=== PATIENT | male | born 1975 | race Two or more races ===

== ENCOUNTER 2021-04-22 10:30 | Emergency (ER) | payer BC ==
[2021-04-22] MEDS ORDERED: Ketorolac 60 MG/2 ML SDV IM ONE (10:59)
[2021-04-22] MEDS ORDERED: Diazepam 2 MG Tab PO ONE (11:00)
--- NOTE | 2021-04-22 11:09 | EDM.PDOC ---
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 The patient states this is much like the pain he had an 12/10/2019 when he received Flexeril. The patient stated he took Flexeril yesterday at 10 AM and again at 11 PM and while enabled him to get sleep he states that his pain is still great now. The patient has not used heat nor ice or any other method except for Flexeril for pain relief. The patient denies any numbness or tingling in his extremities. The patient denies any kind of headache or fever. The patient states that he is able to ambulate and get up and down but requires assistance because of the pain. Patient denies any chills, change in vision, syncope or near syncope. Denies any chest pain, back pain, shortness of breath or cough. Denies any abdominal pain, nausea, vomiting, diarrhea, constipation or dysuria. Has not noted any blood in urine or stool. Patient has been eating and drinking appropriately. Review of systems: As per history of present illness and below otherwise all systems reviewed and negative. Past medical history: As per history of present illness and as reviewed below otherwise noncontributory. Surgical history: As per history of present illness and as reviewed below otherwise noncontributory. Social history: See social history for further information Family history: As per history of present illness and as reviewed below otherwise noncontributory. Physical exam: General: Well developed and well nourished. Alert and orientated x 3. Nontoxic in appearance and in no acute distress. Vital signs are stable and have been reviewed by me. Nursing notes were reviewed. HEENT: Atraumatic, normocephalic, pupils equal and reactive bilaterally, negative for conjunctival pallor or scleral icterus, mucous membranes moist, TMs normal bilaterally, throat clear, neck supple, nontender, trachea midline. No drooling or trismus noted. No meningeal signs. No hot potato voice noted. Lungs: Clear to auscultation bilaterally. No wheezes, rales, or rhonchi. Chest nontender. Normal work of breathing, no accessory muscles used. Heart: S1S2, regular rate and rhythm without overt murmur, gallops, or rubs. No JVD. No peripheral edema Abdomen: Soft, nondistended, nontender. Normoactive bowel sounds. Negative for masses or costovertebral tenderness. Skin: Intact, warm, dry. No lesions or rashes noted. Hematologic: No petechiae or purpra. Mucosa appropriate color and normal nail bed color and refill. Back: Neck and back have no deformities, external skin changes, or signs of trauma. Curvature of the cervical, thoracic, and lumbar spine are within normal limits. Bony features of the shoulders and hips are of equal height bilaterally. Posture is upright, gait is smooth, steady, and within normal limits. No tenderness is noted on palpation of the spinous processes. Spinous processes are midline. Cervical, thoracic, and lumbar paraspinal muscles are tender. Discomfort is noted with flexion, extension, and [id number] rotation of the cervical spine, with decreased range of motion is noted. Decreased range of motion including flexion, extension, and [id number] rotation of the thoracic and lumbar spine are noted and with discomfort. Straight leg raise test is negative bilaterally. Sensation to the upper and lower extremities is normal bilaterally. No clonus is noted. [employer] strength is normal bilaterally. Dorsi/plantar flexion is normal bilaterally. Extremities: Atraumatic, moves all extremities per self without difficulty or deficits, negative for cords or calf pain. Neurovascular unremarkable. Neuro: Awake, alert, oriented. Cranial nerves II through XII unremarkable. Cerebellum unremarkable. Motor and sensory unremarkable throughout. Exam nonfocal. Psychiatric: Mood and affect are appropriate. Normal thought process. Answering questions appropriately. Notes: *This patient was seen and evaluated during the 2019 SARS-CoV-2 novel coronavirus pandemic period. Community viral transmission is ongoing at time of this encounter and the emergency department is operating under pandemic response procedures. 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 Patient has a history of this and which happened again December 10, 2019 for which she was prescribed Flexeril. The patient's exam is positive for tenderness over . I will obtain neck, cervical, and lumbar x- rays. I will treat the patient with Toradol and Valium. The patient was able to obtain greater rotation of his neck and back. Patient states that he still in pain but somewhat better. Cervical spine x-ray IMPRESSION: Slight reversal of the normal cervical lordosis, otherwise unremarkable cervical spine radiographs. Thoracic spine x- ray IMPRESSION: Early degenerative changes of thoracic spine. lumbar spine x-ray IMPRESSION: Grade 1 anterolisthesis of L5 on S1, measuring 8 mm. This is of uncertain chronicity as no prior images are available for comparison. I informed the patient of the results and the need to follow-up with his primary care provider and possibility of physical therapy. Prescribed Valium 2 mg every 6 hours as needed for muscle pain. He can use an NSAID to help with the inflammation. I have given the patient for a cough for until Wednesday 04/25. The patient is agreeable with this discharge plan. I have talked with the patient about today's findings, in addition to providing specific details for plan of care. Reassessment at the time of disposition demonstrates that the patient is in no acute distress. The patient is stable for discharge, counseling was provided and we discussed in great detail signs and symptoms that would prompt them to return to the Emergency Department. Medication, follow up and supportive care measures were reviewed and discussed. Voices understanding and is agreeable to plan of care. Denies any further questions or concerns at this time. Diagnostics: Neck, cervical, lumbar x-rays Therapeutics: Toradol, Valium Prescription: Valium 2mg every 6 hours as needed for muscle pain #12 Impression: Back pain, neck pain Plan: 1. You were evaluated today on an emergent basis. Your complaints of neck pain, upper back and lower back pain were evaluated with an exam and x-ray. The cause of your pain is muscular in nature. You were treated with Valium and Toradol. You have improvement with your movement of your neck and back. It will take a few days to relieve all of your pain. As we talked about, you need to follow up with your primary care provider. I will give you a note through Saturday. If you continue to have pain and are unable to work then call for a follow up with your primary care provider. This is your second time of back pain and you need to follow up to ensure you have good back health. I have prescribed Valium 2mg every 6 hours as needed for muscle pain in a paper prescription. I would take this several times per day to ensure your back pain resolves. If you loose the ability to hold your urine or stool or are unsteady on your feet return to the emergency department for further treatment. 2. You can alternate Tylenol and ibuprofen as needed for pain and fever management. 3. We encourage you to follow up with your primary care provider and/or recommended specialist in the next few days for re-evaluation and further care/management. 4. If your symptoms should worsen, new symptoms develop or any of the signs and symptoms we discussed should arise please return to the emergency room or call 911 (if needed). Definitive disposition and diagnosis as appropriate pending reevaluation and review of above. Back Pain Score (Numeric/FACES): 9 - Related Data Allergies Allergy/AdvReac Type Severity Reaction Status Date / Time No Known Allergies Allergy Verified 04/22/21 10:38 Home Meds: Home Meds Cyclobenzaprine [Flexeril] 10 mg PO BID 04/22/21 [History] Past Medical History - Past Surgical History Musculoskeletal Surgical History: Reports: Other (See Below) Other Musculoskeletal Surgeries/Procedures:: ACL repair, elbow surgery Social & Family History - Family History Family Medical History: No Pertinent Family History - Tobacco Use Tobacco Use Status *Q: Current Every Day Tobacco User Years of Tobacco use: 24 Packs/Tins Daily: 1 - Caffeine Use Caffeine Use: Reports: Coffee, Energy Drinks - Recreational Drug Use Recreational Drug Use: No ED ROS GENERAL - Review of Systems Review Of Systems: Comprehensive ROS is negative, except as noted in HPI. ED EXAM,LOWER BACK PAIN/INJURY - Physical Exam Exam: See Below (See dictation) Course - Vital Signs Last Recorded V/S: Last Vital Signs Temp 97.9 F 04/22/21 13:20 Pulse 74 04/22/21 13:20 Resp 17 04/22/21 13:20 BP 108/73 04/22/21 13:20 Pulse Ox 98 04/22/21 13:20 - Orders/Labs/Meds Meds: Medications Discontinued Medications Generic Name Dose Route Start Last Admin Trade Name Sujit PRN Reason Stop Dose Admin Diazepam 5 mg 04/22/21 11:00 04/22/21 11:44 Diazepam 2 Mg Tab PO 04/22/21 11:01 5 mg ONETIME ONE Administration Ketorolac Tromethamine 60 mg 04/22/21 10:59 04/22/21 11:45 Ketorolac 60 Mg/2 Ml Sdv IM 04/22/21 11:00 60 mg ONETIME ONE Administration Departure - Departure Time of Disposition: 12:14 Disposition: Home, Self-Care 01 Condition: Good Clinical Impression: Neck pain Back pain Qualifiers: Back pain location: low back pain Chronicity: acute Back pain laterality: bilateral Sciatica presence: without sciatica Qualified Code(s): M54.50 - Low back pain, unspecified - Discharge Information Instructions: Acute Back Pain, Adult Referrals: PCP,None [Primary Care Provider] - Forms: ED Department Discharge Additional Instructions: The following information is given to patients seen in the emergency department who are being discharged to home. This information is to outline your options for follow-up care. We provide all patients seen in our emergency department with a follow-up referral. The need for follow-up, as well as the timing and circumstances, are variable depending upon the specifics of your emergency department visit. If you don't have a primary care physician on staff, we will provide you with a referral. We always advise you to contact your personal physician following an emergency department visit to inform them of the circumstance of the visit and for follow-up with them and/or the need for any referrals to a consulting specialist. The emergency department will also refer you to a specialist when appropriate. This referral assures that you have the opportunity for follow-up care with a specialist. All of these measure are taken in an effort to provide you with optimal care, which includes your follow-up. Under all circumstances we always encourage you to contact your private physician who remains a resource for coordinating your care. When calling for follow-up care, please make the office aware that this follow-up is from your recent emergency room visit. If for any reason you are refused follow-up, please contact the [facility] Emergency Department at and asked to speak to the emergency department charge nurse. [facility] [address] [place] [id number] [facility] [address] [place] [address] Plan: 1. You were evaluated today on an emergent basis. Your complaints of neck pain, upper back and lower back pain were evaluated with an exam and x-ray. The cause of your pain is muscular in nature. You were treated with Valium and Toradol. You have improvement with your movement of your neck and back. It will take a few days to relieve all of your pain. As we talked about, you need to follow up with your primary care provider. I will give you a note through Saturday. If you continue to have pain and are unable to work then call for a follow up with your primary care provider. This is your second time of back pain and you need to follow up to ensure you have good back health. I have prescribed Valium 2mg every 6 hours as needed for muscle pain in a paper prescription. I would take this several times per day to ensure your back pain resolves. If you loose the ability to hold your urine or stool or are unsteady on your feet return to the emergency department for further treatment. 2. You can alternate Tylenol and ibuprofen as needed for pain and fever management. 3. We encourage you to follow up with your primary care provider and/or recommended specialist in the next few days for re-evaluation and further care/management. 4. If your symptoms should worsen, new symptoms develop or any of the signs and symptoms we discussed should arise please return to the emergency room or call 911 (if needed). Sepsis Event Note (ED) - Evaluation Sepsis Screening Result: No Definite Risk - Focused Exam Vital Signs: Vital Signs Temp Pulse Resp BP Pulse Ox 04/22/21 13:20 97.9 F 74 17 108/73 98 04/22/21 10:39 96.9 F 61 20 107/71 99
--- NOTE | 2021-04-22 11:31 | CR ---
INDICATION: Back pain after lifting object TECHNIQUE: Cervical spine 3 view. COMPARISON: None FINDINGS: There is straightening and reversal the cervical lordosis. The vertebral body heights are maintained and in good alignment. The disc spaces are preserved. The prevertebral soft tissues are within normal limits. The visualized portions of the lung apices are clear. IMPRESSION: Slight reversal of the normal cervical lordosis, otherwise unremarkable cervical spine radiographs. Dictated by Marixa Alicea MD @ 04/22/2021 11:30:13 AM (Electronically Signed)
--- NOTE | 2021-04-22 11:33 | CR ---
INDICATION: Back pain after lifting object at work TECHNIQUE: Lumbar spine 3 view. COMPARISON: None FINDINGS: There is normal lumbar lordosis. The vertebral body heights are maintained. There is grade 1 anterolisthesis of L5 on S1, measuring 8 mm. The alignment is otherwise normal. Small anterior osteophytes throughout the lumbar spine. IMPRESSION: Grade 1 anterolisthesis of L5 on S1, measuring 8 mm. This is of uncertain chronicity as no prior images are available for comparison. Dictated by Marixa Alicea MD @ 04/22/2021 11:32:40 AM (Electronically Signed)
--- NOTE | 2021-04-22 11:37 | CR ---
INDICATION: Back pain after lifting object TECHNIQUE: Thoracic spine 2 view. COMPARISON: None FINDINGS: Evaluation of the upper spine is limited due to overlying shoulder. The vertebral body heights are maintained and in good alignment. There is mild diffuse disc space narrowing. Small anterior osteophytes are seen. The visualized portion of the lung are clear. IMPRESSION: Early degenerative changes of thoracic spine. Dictated by Marixa Alicea MD @ 04/22/2021 11:35:20 AM (Electronically Signed)
== END 2021-04-22 13:20 | disposition home or self-care (01) ==
LOC: MW.ED 10:30
DX: M54.50 Low back pain, unspecified (principal); M54.2 Cervicalgia; Z72.0 Tobacco use
CPT/HCPCS: 72040; 72070; 72100; 96372; 99283; A9270; J1885

== ENCOUNTER 2022-09-01 16:02 | Emergency (ER) | payer BC ==
[2022-09-01] MEDS ORDERED: Magnesium Sulfate/Water 2 GM in Premix Bag 1 BAG IV STA (16:54)
[2022-09-01] MEDS ORDERED: Sodium Chloride 0.9% 2.5 ML Syringe FLUSH PRN (16:54)
[2022-09-01] MEDS ORDERED: diphenhydrAMINE 50 MG/ML SDV IVPUSH STA (16:54)
[2022-09-01] MEDS ORDERED: Sodium Chloride 0.9% 1,000 ML IV STA (16:54)
[2022-09-01] MEDS ORDERED: Sodium Chloride 0.9% 10 ML Syringe FLUSH PRN (16:54)
[2022-09-01] MEDS ORDERED: fentaNYL 50 MCG/ML SDV IVPUSH STA (16:55)
[2022-09-01 17:09] LABS: CARBON DIOXIDE,CO2 25.7 mmol/L (21.0-32.0)
== END 2022-09-01 18:57 | disposition home or self-care (01) ==
LOC: MW.ED 16:02
DX: S16.1XXA Strain of muscle, fascia and tendon at neck level, initial encounter (principal); M25.511 Pain in right shoulder; G44.219 Episodic tension-type headache, not intractable; F17.210 Nicotine dependence, cigarettes, uncomplicated
CPT/HCPCS: 36415; 70450; 72125; 73030; 80053; 85025; 96365; 96375; 99284; J1200; J3010; J3475; J3490; J7030